=== PATIENT | female | born 1975 | race Hispanic/Latino ===

== ENCOUNTER 2019-11-29 05:45 | Day surgery (SDC) | payer BC ==
[~2019-11-29] VITALS: Ht 170.2 cm; Wt 84.8 kg
[2019-11-29] VITALS (8 sets, daily range): BP systolic 96–132; BP diastolic 63–81
[~2019-11-29 05:45] MED LIST: ALPR1TAB2 PO; GLIP2.5T2 PO; METF-445 PO
[2019-11-29] MEDS ORDERED: SODIUM CHLORIDE 0.9% 1000ML 1,000 ML IV ONE (05:56)
[2019-11-29] MEDS ORDERED: ATOR10TA69 PO (07:14)
[2019-11-29] MEDS ORDERED: TRAM50TA4 PO (07:14)
[2019-11-29] MEDS ORDERED: PROPOFOL 10 MG/ML 20ML VIAL IV ONE ×2 (08:35→08:47)
[2019-11-29] MEDS ORDERED: MIDAZOLAM HCL 1 MG/ML 2ML VIAL ONE (08:36)
[2019-11-29] MEDS ORDERED: SODIUM CHLORIDE 0.9% 10 ML VIAL ONE (09:02)
[2019-11-29] MEDS ORDERED: PHENYLEPHRINE HCL 10 MG/ML 1ML VIAL IV ONE (09:02)
--- NOTE | 2019-11-29 09:40 | NUR ---
dc pt [place] via [place] ,no distress noted pt accompanied by father, pt denied any pain or discomforts. dc intructions reinforced at this time to both pt/father
== END 2019-11-29 09:40 | disposition home or self-care (01) ==
LOC: DAH 05:45 → ENDO 05:45
PROVIDERS: ATTEND Internal Medicine Gastroenterology
DX: K52.9 Noninfective gastroenteritis and colitis, unspecified (principal); K29.70 Gastritis, unspecified, without bleeding; K22.8 Other specified diseases of esophagus; K31.89 Other diseases of stomach and duodenum; E11.9 Type 2 diabetes mellitus without complications; F41.9 Anxiety disorder, unspecified; K21.9 Gastro-esophageal reflux disease without esophagitis; M06.9 Rheumatoid arthritis, unspecified; E66.01 Morbid (severe) obesity due to excess calories; Z80.0 Family history of malignant neoplasm of digestive organs; Z79.84 Long term (current) use of oral hypoglycemic drugs; Z79.899 Other long term (current) drug therapy
CPT/HCPCS: 43239; 45380; 82948 ×2; A4215 ×2; A4221 ×2; A4222 ×2; A4223 ×2; A4606 ×2; A4615; A4620; A4663 ×2; J2250; J2370; J2704 ×2; J7030